=== PATIENT | female | born 1945 | race Native Hawaiian/Other Pacific Islander ===

== ENCOUNTER 2018-12-13 14:39 | Outpatient (CLI) | payer OTHER, BC | END 2018-12-13 20:42 | disposition home or self-care (01) | LOC: RAD 14:39 | DX: M25.552 Pain in left hip (principal) ==

== ENCOUNTER 2019-02-08 10:11 | Outpatient (CLI) | payer BC ==
[2019-02-08 11:18] LABS: PLATELET COUNT 251 K/uL (152-353)
[2019-02-08 11:43] LABS: POTASSIUM 4.3 mmol/L (3.6-5.2)
== END 2019-02-08 19:48 | disposition home or self-care (01) ==
LOC: LABW 10:11 → RAD 10:11 → LABW 19:48
PROVIDERS: Family Medicine
DX: R05 Cough (principal); E03.9 Hypothyroidism, unspecified; I10 Essential (primary) hypertension; M19.90 Unspecified osteoarthritis, unspecified site; E55.9 Vitamin D deficiency, unspecified
CPT/HCPCS: 36415; 80053; 80061; 81000; 82306; 84439; 84443; 84550; 85027

== ENCOUNTER 2019-09-24 14:50 | Outpatient (CLI) | payer BC ==
[2019-09-24 16:12] LABS: PLATELET COUNT 236 K/uL (152-353)
[2019-09-24 16:37] LABS: POTASSIUM 4.1 mmol/L (3.6-5.2); SODIUM 139 mmol/L (136-145)
== END 2019-09-24 19:41 | disposition home or self-care (01) ==
LOC: LABW 14:50
PROVIDERS: Family Medicine
DX: G89.4 Chronic pain syndrome (principal); F41.8 Other specified anxiety disorders; R05 Cough; J44.9 Chronic obstructive pulmonary disease, unspecified; R07.89 Other chest pain; R53.83 Other fatigue
CPT/HCPCS: 36415; 80053; 80061; 82550; 84439; 84443; 84484; 85027; 93005